=== PATIENT | female | born 1940 | race Two or more races ===

== ENCOUNTER → 2017-03-10 | Outpatient (CLI) | payer MEDICARE, OTHER ==
[2017-03-10 16:05] LABS: BUN/Creatinine Ratio 22.8; Calcium 8.8 mg/dL (8.5-10.1); Potassium 3.6 mmol/L (3.5-5.1); Uric Acid 3.4 mg/dL (2.6-6.0)
== END | disposition home or self-care (01) ==
LOC: LAB 14:18
PROVIDERS: ATTEND Internal Medicine Cardiovascular Disease
DX: I10 Essential (primary) hypertension (principal); M10.9 Gout, unspecified
CPT/HCPCS: 36415; 80048; 84550

== ENCOUNTER → 2017-10-20 | Outpatient (CLI) | payer MEDICARE, OTHER ==
[2017-10-20 15:13] LABS: Urine Bilirubin Negative (Negative); Urine Blood TRACE /uL (Negative); Urine Color Yellow (Yellow); Urine Glucose Normal (Normal); Urine Ketone Negative (Negative); Urine Nitrite Negative (Negative); Urine Urobilinogen Normal (Negative)
[2017-10-20 15:17] LABS: Basophils # (auto) 0.1 uL; Eosinophils # (auto) 0.2 uL; Eosinophils % (auto) 3.1 % (0.0-7.0); Hematocrit 37.7 % (36.0-46.0); Hemoglobin 12.5 g/dL (12.2-16.2); Lymphocytes # (auto) 1.6 uL; Lymphocytes % (auto) 30.2 % (10.0-50.0); Mean Corpuscular Hemoglobin 28.8 pg (28.0-32.0); Mean Corpuscular Hgb Conc. 33.1 g/dL (32.0-36.0); Mean Platelet Volume 8.4 fL (6.9-10.8); Monocytes # (auto) 0.4 uL; Monocytes % (auto) 7.6 % (0.0-12.0); Neutrophils % (auto) 58.1 % (37.0-80.0); Nucleated Red Blood Cells % 0.3 %; Platelet Count (auto) 284 10^3/uL (140-450); Red Cell Distribution Width 15.7 % (11.8-14.3); White Blood Cell 5.2 10^3/uL (4.4-10.8)
[2017-10-20 15:25] LABS: Albumin 3.5 g/dL (3.4-5.0); Alkaline Phosphatase 69 U/L (45-117); Anion Gap 12 (5-15); Aspartate Aminotransferase 15 U/L (15-37); BUN/Creatinine Ratio 33.3; Bilirubin, Direct < 0.1 mg/dL (0-0.2); Bilirubin, Total 0.3 mg/dL (0.2-1.0); Blood Urea Nitrogen 25 mg/dL (7-18); Calcium 9.2 mg/dL (8.5-10.1); Carbon Dioxide 25 mmol/L (21-32); Chloride 111 mmol/L (98-107); Cholesterol 122 mg/dL (< 200); GFR African American 97 mL/min; GFR Non-African American 80 mL/min; Glucose 97 mg/dL (74-106); HDL Cholesterol 56 mg/dL (40-59); LDL Cholesterol 66 mg/dL (< 100); Potassium 4.7 mmol/L (3.5-5.1); Sodium 148 mmol/L (136-145); Total Protein 7.4 g/dL (6.4-8.2); Triglycerides 109 mg/dL (< 150)
== END | disposition home or self-care (01) ==
LOC: LAB 09:42
PROVIDERS: ATTEND Internal Medicine Cardiovascular Disease
DX: I10 Essential (primary) hypertension (principal); E11.9 Type 2 diabetes mellitus without complications; E78.00 Pure hypercholesterolemia, unspecified; K74.1 Hepatic sclerosis; E03.9 Hypothyroidism, unspecified; D64.9 Anemia, unspecified; E55.9 Vitamin D deficiency, unspecified; N39.0 Urinary tract infection, site not specified
CPT/HCPCS: 36415; 80048; 80061; 80076; 81003; 82306; 83036; 84443; 85025

== ENCOUNTER → 2017-10-26 | Outpatient (CLI) | payer OTHER | END | disposition home or self-care (01) | LOC: Rad HDHVI 12:01 | PROVIDERS: ATTEND Internal Medicine Cardiovascular Disease | DX: I70.0 Atherosclerosis of aorta (principal); R91.8 Other nonspecific abnormal finding of lung field | CPT/HCPCS: 71020 ==

== ENCOUNTER → 2018-12-14 | Outpatient (CLI) | payer OTHER ==
[2018-12-14 12:11] LABS: Basophils # (auto) 0.1 uL; Eosinophils # (auto) 0.2 uL; Monocytes # (auto) 0.6 uL; Red Cell Distribution Width 17.5 % (11.8-14.3)
[2018-12-14 12:14] LABS: Basophils % (auto) 0.6 % (0.0-2.0); Eosinophils % (auto) 2.3 % (0.0-7.0); Hematocrit 33.8 % (36.0-46.0); Hemoglobin 11.1 g/dL (12.2-16.2); Lymphocytes # (auto) 1.2 uL; Lymphocytes % (auto) 13.8 % (10.0-50.0); Mean Corpuscular Hgb Conc. 32.7 g/dL (32.0-36.0); Mean Corpuscular Volume 73.3 fL (80.0-100.0); Monocytes % (auto) 6.8 % (0.0-12.0); Neutrophils # (auto) 6.4 uL; Neutrophils % (auto) 76.5 % (37.0-80.0); Nucleated Red Blood Cells % 0.4 %; Platelet Count (auto) 381 10^3/uL (140-450); Red Blood Cells 4.61 10^6/uL (4.0-5.20); White Blood Cell 8.4 10^3/uL (4.4-10.8)
[2018-12-14 12:19] LABS: Urine Blood Negative /uL (Negative); Urine Specific Gravity 1.006 (1.001-1.035)
[2018-12-14 12:21] LABS: Chloride 108 mmol/L (98-107); Potassium 3.9 mmol/L (3.5-5.1); Sodium 139 mmol/L (136-145)
[2018-12-14 12:28] LABS: Free T4 (Free Thyroxine) 1.07 ng/dL (0.89-1.76)
[2018-12-14 12:32] LABS: Alanine Aminotransferase 20 U/L (13-56); Albumin 3.4 g/dL (3.4-5.0); Alkaline Phosphatase 83 U/L (45-117); Anion Gap 5 (5-15); Aspartate Aminotransferase 24 U/L (15-37); BUN/Creatinine Ratio 22.7; Bilirubin, Total 0.2 mg/dL (0.2-1.0); Blood Urea Nitrogen 15 mg/dL (7-18); Calcium 8.7 mg/dL (8.5-10.1); Carbon Dioxide 26 mmol/L (21-32); Cholesterol 125 mg/dL (< 200); GFR African American > 60 mL/min; GFR Non-African American > 60 mL/min; Glucose 95 mg/dL (74-106); HDL Cholesterol 52 mg/dL (40-59); LDL Cholesterol 65 mg/dL (< 100); Total Protein 7.3 g/dL (6.4-8.2); Triglycerides 60 mg/dL (< 150)
== END | disposition home or self-care (01) ==
LOC: LAB 08:49
PROVIDERS: ATTEND Internal Medicine
DX: E03.9 Hypothyroidism, unspecified (principal); E11.9 Type 2 diabetes mellitus without complications; E55.9 Vitamin D deficiency, unspecified; D51.9 Vitamin B12 deficiency anemia, unspecified; N39.0 Urinary tract infection, site not specified
CPT/HCPCS: 36415; 80053; 80061; 81003; 82306; 82607; 83036; 84439; 84443; 85025; 87086

== ENCOUNTER → 2018-12-28 | Outpatient (CLI) | payer OTHER ==
[~2018-12-28] MED LIST: IOHEXOL 350 MG/ML 100ML IJ ONE
[2018-12-28 10:00] VITALS: BP 143/65
--- NOTE | 2018-12-28 10:15 | NUR ---
IV insertion IV access obtained, via clean sterile technique by inserting 22 gauge catheter at LAC after 1 attempt(s). IV secured properly. No trauma to site. Patient tolerated procedure well.
--- NOTE | 2018-12-28 10:40 | NUR ---
IV removal IV DC'd with sterile technique, catheter fully intact. Pressure dressing applied to site. Patient tolerated procedure well.
[2018-12-28 10:43] VITALS: BP 145/60
--- NOTE | 2018-12-28 10:43 | NUR ---
[facility] Discharge Instructions See e-MAR for any mediations given with this visit. Patient education given on disease process. Patient verbalized understanding. Previous labs reviewed. Patient discharged in stable condition with after care instructions and follow up appointment. NOTE PATIENT EDUCATED TO DRINK PLENTY OF FLUIDS AFTER CT SCAN, PATIENT VERBALIZED UNDERSTANDING.
== END | disposition home or self-care (01) ==
LOC: Rad HDHVI 09:51
PROVIDERS: ATTEND Internal Medicine
DX: J43.9 Emphysema, unspecified (principal); R91.8 Other nonspecific abnormal finding of lung field
CPT/HCPCS: 71260; 82565; G0463; Q9967

== ENCOUNTER → 2019-02-28 | Outpatient (CLI) | payer OTHER ==
[2019-02-28 12:14] LABS: Potassium 3.9 mmol/L (3.5-5.1)
[2019-02-28 12:22] LABS: BUN/Creatinine Ratio 46.4
== END | disposition home or self-care (01) ==
LOC: LAB 07:55
PROVIDERS: ATTEND Internal Medicine Cardiovascular Disease
DX: R94.4 Abnormal results of kidney function studies (principal); I10 Essential (primary) hypertension
CPT/HCPCS: 36415; 80048

== ENCOUNTER → 2019-03-01 | Outpatient (CLI) | payer OTHER ==
[~2019-03-01] MED LIST changes: +EZET10TA PO; +RALO60TA13 PO; +TELM80TA PO; +TIOTCAP IN
[2019-03-01 10:40] VITALS: BP 125/54
[2019-03-01 11:41] VITALS: BP 122/47
--- NOTE | 2019-03-01 11:41 | NUR ---
CTA BILATERAL LEGS DONE. TOLERATED WELL IV SITE BENIGN POST USE. Discharge Instructions See e-MAR for any mediations given with this visit. Patient education given on disease process. Patient verbalized understanding. Previous labs reviewed. Patient discharged in stable condition with after care instructions .
== END | disposition home or self-care (01) ==
LOC: Rad HDHVI 09:51
PROVIDERS: ATTEND Internal Medicine Cardiovascular Disease
DX: I70.0 Atherosclerosis of aorta (principal); C34.90 Malignant neoplasm of unspecified part of unspecified bronchus or lung; I07.1 Rheumatic tricuspid insufficiency; I73.9 Peripheral vascular disease, unspecified; I10 Essential (primary) hypertension; I77.1 Stricture of artery
CPT/HCPCS: 75635; 93306; G0463; Q9967

== ENCOUNTER 2019-03-05 10:22 | Inpatient (IN) | payer OTHER ==
[2019-03-05] VITALS (7 sets, daily range): BP systolic 96–132; BP diastolic 37–56
[~2019-03-05] VITALS: Ht 165.1 cm; Wt 52.3 kg
[2019-03-05] MEDS ORDERED: LEVOFLOXACIN 500MG 100 ML IV ONE (10:30)
[2019-03-05] MEDS ORDERED: SODIUM CHLORIDE 0.9% 500 ML IV ONE (10:34)
[2019-03-05] MEDS ORDERED: ONDANSETRON HCL 4 MG/2 ML VIAL IV ONE (10:45)
[2019-03-05 12:12] LABS: Basophils # (auto) 0 uL; Basophils % (auto) 0.6 % (0.0-2.0); Eosinophils # (auto) 0.1 uL; Eosinophils % (auto) 1.1 % (0.0-7.0); Lymphocytes # (auto) 1.1 uL; Lymphocytes % (auto) 13.4 % (10.0-50.0); Mean Corpuscular Hemoglobin 24.7 pg (28.0-32.0); Mean Corpuscular Hgb Conc. 31.9 g/dL (32.0-36.0); Mean Corpuscular Volume 77.5 fL (80.0-100.0); Monocytes # (auto) 0.3 uL; Monocytes % (auto) 3.6 % (0.0-12.0); Neutrophils # (auto) 6.6 uL; Neutrophils % (auto) 81.3 % (37.0-80.0); Platelet Count (auto) 194 10^3/uL (140-450); Red Blood Cells 1.68 10^6/uL (4.0-5.20); White Blood Cell 8.1 10^3/uL (4.4-10.8)
[2019-03-05 12:13] LABS: Nucleated Red Blood Cells % 8.6 %; Red Cell Distribution Width 24.4 % (11.8-14.3)
[2019-03-05 12:14] LABS: Hemoglobin 4.1 g/dL (12.2-16.2)
[2019-03-05 12:26] LABS: INR 1.29 (0.9-1.15); Partial Thromboplastin Time 25.7 sec (23.78-33.04); Prothrombin Time 13.6 sec (9.27-12.13)
[2019-03-05 12:29] LABS: Calcium 7.2 mg/dL (8.5-10.1); Potassium 3.6 mmol/L (3.5-5.1)
[2019-03-05] MEDS ORDERED: diphenhdrAMINE HCL 25 MG CAP PO ONE (12:30)
[2019-03-05 12:35] LABS: Bilirubin, Total 0.3 mg/dL (0.2-1.0); Total Protein 4.2 g/dL (6.4-8.2)
[2019-03-05] MEDS ORDERED: CALCIUM CHL 100MG/ML 500 MG in D5W 5% 100 ML IV ONE (12:45)
[2019-03-05] MEDS ORDERED: ACETAMINOPHEN 325 MG TAB PO ONE (13:00)
[2019-03-05] MEDS ORDERED: NITROGLYCERIN 0.4 MG SL TAB SL PRN (13:30)
[2019-03-05] MEDS ORDERED: ACETAMINOPHEN 500 MG TAB PO PRN (13:30)
[2019-03-05] MEDS ORDERED: MORPHINE SULF INJ 2 MG/ML SYRINGE 1ML IV PRN (13:30)
[2019-03-05] MEDS ORDERED: PANTOPRAZOLE 40 MG TAB PO ONE (13:30)
[2019-03-05] MEDS ORDERED: MULTIPLE VITAMIN 10 ML, MAGNESIUM SULF SDV 50% 8 MEQ, THIAMINE INJ 100 MG in D5W/SOD CH... IV SCH (13:45)
[2019-03-05] MEDS: SODIUM CHLORIDE 0.9% 1,000 ML IV SCH (19:39)
[2019-03-05 22:07] LABS: Basophils # (auto) 0 uL; Basophils % (auto) 0.3 % (0.0-2.0); Eosinophils # (auto) 0.1 uL; Eosinophils % (auto) 0.9 % (0.0-7.0); Hematocrit 26.3 % (36.0-46.0); Hemoglobin 8.8 g/dL (12.2-16.2); Lymphocytes # (auto) 1.1 uL; Lymphocytes % (auto) 14.9 % (10.0-50.0); Mean Corpuscular Hemoglobin 28.2 pg (28.0-32.0); Mean Corpuscular Hgb Conc. 33.3 g/dL (32.0-36.0); Mean Corpuscular Volume 84.6 fL (80.0-100.0); Monocytes # (auto) 0.3 uL; Monocytes % (auto) 4.4 % (0.0-12.0); Neutrophils # (auto) 5.8 uL; Neutrophils % (auto) 79.5 % (37.0-80.0); Nucleated Red Blood Cells % 0.1 %; Platelet Count (auto) 158 10^3/uL (140-450); Red Blood Cells 3.11 10^6/uL (4.0-5.20); White Blood Cell 7.3 10^3/uL (4.4-10.8)
[2019-03-05 22:12] LABS: Red Cell Distribution Width 21.6 % (11.8-14.3)
[2019-03-05] MEDS: HYDROcodone-ACET 5/325MG TAB PO PRN (22:23)
[2019-03-05] MEDS: PANTOPRAZOLE 40 MG TAB PO SCH (22:24)
[2019-03-06] VITALS: BP 124/58
[2019-03-06 03:00] VITALS: BP 124/57
[2019-03-06 06:01] LABS: Basophils # (auto) 0 uL; Basophils % (auto) 0.2 % (0.0-2.0); Eosinophils # (auto) 0.1 uL; Eosinophils % (auto) 1.1 % (0.0-7.0); Hematocrit 25.3 % (36.0-46.0); Hemoglobin 8.6 g/dL (12.2-16.2); Lymphocytes # (auto) 0.9 uL; Lymphocytes % (auto) 13.1 % (10.0-50.0); Mean Corpuscular Hemoglobin 28.3 pg (28.0-32.0); Mean Corpuscular Volume 83.4 fL (80.0-100.0); Monocytes # (auto) 0.4 uL; Monocytes % (auto) 5.2 % (0.0-12.0); Neutrophils # (auto) 5.6 uL; Neutrophils % (auto) 80.4 % (37.0-80.0); Nucleated Red Blood Cells % 0.1 %; Platelet Count (auto) 154 10^3/uL (140-450); Red Blood Cells 3.03 10^6/uL (4.0-5.20); White Blood Cell 6.9 10^3/uL (4.4-10.8)
[2019-03-06 06:17] LABS: Potassium 3.3 mmol/L (3.5-5.1)
[2019-03-06 06:20] LABS: Red Cell Distribution Width 21.7 % (11.8-14.3)
[2019-03-06 06:25] LABS: BUN/Creatinine Ratio 26.3
[2019-03-06 08:00] VITALS: BP 121/59
[2019-03-06] MEDS: HYDROcodone-ACET 5/325MG TAB PO PRN (09:34)
[2019-03-06] MEDS: PANTOPRAZOLE 40 MG TAB PO SCH ×2 (09:34→22:14)
[2019-03-06] MEDS: SODIUM CHLORIDE 0.9% 1,000 ML IV SCH ×3 (09:35→20:18)
[2019-03-06] MEDS ORDERED: TELM80TA PO (11:38)
[2019-03-06] MEDS ORDERED: RALO60TA13 PO (11:38)
[2019-03-06] MEDS ORDERED: EZET10TA PO (11:41)
[2019-03-06] MEDS ORDERED: TIOTCAP IN (11:41)
[2019-03-06] MEDS ORDERED: POTASSIUM CHL 20 Meq TABLET PO ONE (11:45)
[2019-03-06 11:50] VITALS: BP 120/59
[2019-03-06 15:46] VITALS: BP 132/67
[2019-03-06 19:45] VITALS: BP 125/56
[2019-03-06] MEDS: MORPHINE SULF INJ 2 MG/ML SYRINGE 1ML IV PRN (23:10)
[2019-03-07] VITALS: BP 134/64
[2019-03-07 04:00] VITALS: BP 119/48
[2019-03-07] MEDS: SODIUM CHLORIDE 0.9% 1,000 ML IV SCH ×2 (05:30→15:38)
[2019-03-07] MEDS: HYDROcodone-ACET 5/325MG TAB PO PRN ×2 (07:39→15:38)
[2019-03-07 08:00] VITALS: BP 122/61
[2019-03-07] MEDS ORDERED: NALOXONE HCL 0.4 MG/ML VIAL ONE (08:44)
[2019-03-07] MEDS ORDERED: FLUMAZENIL 0.1 MG/ML INJ 10ML MDV IV ONE (08:44)
[2019-03-07] MEDS ORDERED: SODIUM CHLORIDE LOCK 10 ML ONE (08:44)
[2019-03-07] MEDS ORDERED: diphenhdrAMINE HCL 50 MG/1 ML VL ONE (08:45)
[2019-03-07] MEDS ORDERED: fentaNYL CITRATE 100 MCG/2 ML VL ONE (08:45)
[2019-03-07] MEDS ORDERED: LIDOCAINE VISCOUS 2% 15ML UD ONE (08:45)
[2019-03-07] MEDS ORDERED: MIDAZOLAM HCL 5 MG/ML-1ML VIAL ONE (08:45)
[2019-03-07] MEDS: PANTOPRAZOLE 40 MG TAB PO SCH ×2 (10:13→21:15)
[2019-03-07 12:00] VITALS: BP 112/57
[2019-03-07 16:00] VITALS: BP 126/59
[2019-03-07] MEDS: MORPHINE SULF INJ 2 MG/ML SYRINGE 1ML IV PRN ×2 (17:20→21:15)
[2019-03-07 19:59] VITALS: BP 115/57
[2019-03-08] VITALS: BP 142/64
[2019-03-08] MEDS: SODIUM CHLORIDE 0.9% 1,000 ML IV SCH ×3 (00:07→23:51)
[2019-03-08 04:00] VITALS: BP 131/68
[2019-03-08] MEDS: MORPHINE SULF INJ 2 MG/ML SYRINGE 1ML IV PRN ×4 (04:48→22:30)
[2019-03-08 08:00] VITALS: BP_SYST 116; BP_SYST 145; BP_DIAS 75; BP_DIAS 83
[2019-03-08] MEDS: PANTOPRAZOLE 40 MG TAB PO SCH ×2 (10:12→22:29)
[2019-03-08 12:00] VITALS: BP 145/75
[2019-03-08] MEDS: HYDROcodone-ACET 5/325MG TAB PO PRN ×4 (12:15→20:06)
[2019-03-08 12:56] LABS: Basophils # (auto) 0 uL; Mean Corpuscular Hemoglobin 27.6 pg (28.0-32.0); Nucleated Red Blood Cells % 0.1 %
[2019-03-08 12:57] LABS: Eosinophils # (auto) 0.1 uL; Eosinophils % (auto) 3.5 % (0.0-7.0); Hematocrit 25.8 % (36.0-46.0); Hemoglobin 8.3 g/dL (12.2-16.2); Lymphocytes # (auto) 0.6 uL; Mean Corpuscular Hgb Conc. 32.3 g/dL (32.0-36.0); Mean Corpuscular Volume 85.5 fL (80.0-100.0); Monocytes # (auto) 0.3 uL; Monocytes % (auto) 6.2 % (0.0-12.0); Neutrophils # (auto) 3.1 uL; Neutrophils % (auto) 74.3 % (37.0-80.0); Platelet Count (auto) 109 10^3/uL (140-450); Red Blood Cells 3.01 10^6/uL (4.0-5.20); White Blood Cell 4.2 10^3/uL (4.4-10.8)
[2019-03-08 13:00] LABS: Red Cell Distribution Width 22.1 % (11.8-14.3)
[2019-03-08 15:50] VITALS: BP 133/65
[2019-03-08 20:00] VITALS: BP 154/85
[2019-03-09] VITALS: BP 131/53
[2019-03-09 05:01] LABS: Basophils # (auto) 0 uL; Eosinophils # (auto) 0.2 uL; Eosinophils % (auto) 4.9 % (0.0-7.0); Hematocrit 25.3 % (36.0-46.0); Hemoglobin 8.4 g/dL (12.2-16.2); Monocytes # (auto) 0.2 uL; Neutrophils # (auto) 2.1 uL; Nucleated Red Blood Cells % 0.1 %
[2019-03-09 05:04] LABS: Basophils % (auto) 0.8 % (0.0-2.0); Lymphocytes # (auto) 0.7 uL; Mean Corpuscular Hemoglobin 28.1 pg (28.0-32.0); Mean Corpuscular Hgb Conc. 33.4 g/dL (32.0-36.0); Mean Corpuscular Volume 84.2 fL (80.0-100.0); Monocytes % (auto) 5.9 % (0.0-12.0); Neutrophils % (auto) 65.4 % (37.0-80.0); Platelet Count (auto) 115 10^3/uL (140-450); White Blood Cell 3.2 10^3/uL (4.4-10.8)
[2019-03-09 05:18] LABS: Red Cell Distribution Width 21.3 % (11.8-14.3)
[2019-03-09 05:23] LABS: BUN/Creatinine Ratio 13.2; Calcium 7.2 mg/dL (8.5-10.1); Potassium 3.5 mmol/L (3.5-5.1)
[2019-03-09 05:25] LABS: Bilirubin, Total 0.3 mg/dL (0.2-1.0); Total Protein 4.7 g/dL (6.4-8.2)
[2019-03-09] MEDS: MORPHINE SULF INJ 2 MG/ML SYRINGE 1ML IV PRN ×3 (05:36→20:10)
[2019-03-09 09:00] VITALS: BP 133/67
[2019-03-09] MEDS: PANTOPRAZOLE 40 MG TAB PO SCH ×2 (11:20→21:34)
[2019-03-09 13:00] VITALS: BP 149/64
[2019-03-09] MEDS: HYDROcodone-ACET 5/325MG TAB PO PRN (13:29)
[2019-03-09 16:31] VITALS: BP 142/84
[2019-03-09] MEDS: SODIUM CHLORIDE 0.9% 1,000 ML IV SCH ×2 (17:30→18:31)
[2019-03-09] MEDS: Pro-Stat SF 30ml Vanilla PO SCH (18:00)
[2019-03-09] MEDS: Ensure Enlive Vanilla 8oz Bottle PO SCH (18:00)
[2019-03-09] MEDS: ONDANSETRON HCL 4 MG/2 ML VIAL IV PRN (20:10)
[2019-03-09 21:53] VITALS: BP 123/52
[2019-03-10] MEDS: DOCUSATE SOD 100 MG CAP PO PRN ×2 (01:00→13:55)
[2019-03-10] MEDS: MORPHINE SULF INJ 2 MG/ML SYRINGE 1ML IV PRN ×6 (01:30→23:05)
[2019-03-10] MEDS: ONDANSETRON HCL 4 MG/2 ML VIAL IV PRN ×2 (02:02→06:57)
[2019-03-10 04:39] VITALS: BP 108/51
[2019-03-10] MEDS: SODIUM CHLORIDE 0.9% 1,000 ML IV SCH ×2 (04:53→13:30)
[2019-03-10 08:00] VITALS: BP 127/66
[2019-03-10] MEDS: Pro-Stat SF 30ml Vanilla PO SCH ×2 (08:00→18:00)
[2019-03-10] MEDS: Ensure Enlive Vanilla 8oz Bottle PO SCH ×3 (08:00→18:21)
[2019-03-10] MEDS: PANTOPRAZOLE 40 MG TAB PO SCH ×2 (09:38→23:04)
[2019-03-10 12:00] VITALS: BP_SYST 112; BP_SYST 116; BP_DIAS 51; BP_DIAS 56
[2019-03-10 22:29] VITALS: BP 107/52
[2019-03-11] MEDS: SODIUM CHLORIDE 0.9% 1,000 ML IV SCH ×3 (03:43→22:25)
[2019-03-11] MEDS: MORPHINE SULF INJ 2 MG/ML SYRINGE 1ML IV PRN ×4 (03:43→22:25)
[2019-03-11 05:08] VITALS: BP 127/62
[2019-03-11 06:05] LABS: Urine Bacteria FEW /hpf (None Seen); Urine Blood Negative /uL (Negative); Urine Specific Gravity 1.007 (1.001-1.035); Urine WBC 1 /hpf (0 - 5)
[2019-03-11 06:39] LABS: INR 0.88 (0.9-1.15); Partial Thromboplastin Time 24.2 sec (23.78-33.04); Prothrombin Time 9.5 sec (9.27-12.13)
[2019-03-11] MEDS: Ensure Enlive Vanilla 8oz Bottle PO SCH ×3 (08:00→18:37)
[2019-03-11] MEDS: Pro-Stat SF 30ml Vanilla PO SCH ×2 (08:00→18:37)
[2019-03-11 09:00] VITALS: BP 114/57
[2019-03-11] MEDS: PANTOPRAZOLE 40 MG TAB PO SCH ×2 (09:33→22:19)
[2019-03-11] MEDS: HYDROcodone-ACET 5/325MG TAB PO PRN (11:29)
[2019-03-11 13:21] VITALS: BP 115/53
[2019-03-11] MEDS ORDERED: IOHEXOL 350 MG/ML 100ML IJ ONE (14:21)
[2019-03-11] MEDS ORDERED: LIDOCAINE 2%HCL (LOCAL ANESTH.) INJ 20ML MDV ONE (14:21)
[2019-03-11] MEDS ORDERED: IODIXANOL 320MG/ML 100ML BTL IV ONE (14:33)
[2019-03-11] MEDS ORDERED: ANGIOMAX 250 MG VIAL IV ONE (14:38)
[2019-03-11] MEDS ORDERED: SODIUM CHL 0.9% 0 ML ONE (14:39)
[2019-03-11] MEDS ORDERED: fentaNYL CITRATE 100 MCG/2 ML VL ONE (14:39)
[2019-03-11] MEDS ORDERED: MIDAZOLAM HCL 1MG/1ML-2 ML VIAL ONE (14:39)
[2019-03-11 16:56] VITALS: BP 139/66
[2019-03-11 20:00] VITALS: BP 128/59
[2019-03-11 22:00] VITALS: BP 128/59
[2019-03-12] MEDS: HYDROcodone-ACET 5/325MG TAB PO PRN ×2 (01:24→16:05)
[2019-03-12 05:00] VITALS: BP 126/60
[2019-03-12] MEDS: MORPHINE SULF INJ 2 MG/ML SYRINGE 1ML IV PRN ×5 (05:15→21:49)
[2019-03-12] MEDS: SODIUM CHLORIDE 0.9% 1,000 ML IV SCH ×2 (05:30→18:55)
[2019-03-12] MEDS: Pro-Stat SF 30ml Vanilla PO SCH ×2 (08:00→18:50)
[2019-03-12] MEDS: Ensure Enlive Vanilla 8oz Bottle PO SCH ×3 (08:00→18:50)
[2019-03-12 09:00] VITALS: BP 120/62
[2019-03-12] MEDS: PANTOPRAZOLE 40 MG TAB PO SCH ×2 (09:22→21:48)
[2019-03-12 12:30] VITALS: BP 122/55
[2019-03-12 17:45] VITALS: BP 123/76
[2019-03-12] MEDS: CILOSTAZOL 100 MG TAB PO SCH (21:48)
[2019-03-12 23:24] VITALS: BP 126/59
[2019-03-13] MEDS: SODIUM CHLORIDE 0.9% 1,000 ML IV SCH ×3 (00:39→21:57)
[2019-03-13 05:35] VITALS: BP 107/49
[2019-03-13] MEDS: HYDROcodone-ACET 5/325MG TAB PO PRN ×2 (06:16→23:41)
[2019-03-13 08:00] VITALS: BP 115/61
[2019-03-13 09:00] VITALS: BP 109/55
[2019-03-13] MEDS: Ensure Enlive Vanilla 8oz Bottle PO SCH ×3 (09:23→17:28)
[2019-03-13] MEDS: Pro-Stat SF 30ml Vanilla PO SCH ×2 (10:18→17:28)
[2019-03-13] MEDS: CILOSTAZOL 100 MG TAB PO SCH ×2 (10:18→21:54)
[2019-03-13] MEDS: PANTOPRAZOLE 40 MG TAB PO SCH ×2 (10:18→21:54)
[2019-03-13] MEDS: DOCUSATE SOD 100 MG CAP PO PRN (10:48)
[2019-03-13 13:00] VITALS: BP 120/62
[2019-03-13] MEDS: GABAPENTIN 300 MG CAP PO SCH ×2 (14:27→21:54)
[2019-03-13] MEDS ORDERED: MAGNESIUM CITRATE SOLUTION 300 ML BTL PO ONE (14:45)
[2019-03-13 17:02] VITALS: BP 115/60
[2019-03-13 18:47] LABS: Basophils # (auto) 0 uL; Basophils % (auto) 0.9 % (0.0-2.0); Eosinophils # (auto) 0.1 uL; Eosinophils % (auto) 1.6 % (0.0-7.0); Hematocrit 26.6 % (36.0-46.0); Hemoglobin 8.6 g/dL (12.2-16.2); Lymphocytes # (auto) 0.5 uL; Lymphocytes % (auto) 14.5 % (10.0-50.0); Mean Corpuscular Hemoglobin 27.2 pg (28.0-32.0); Mean Corpuscular Hgb Conc. 32.1 g/dL (32.0-36.0); Mean Corpuscular Volume 84.8 fL (80.0-100.0); Monocytes # (auto) 0.3 uL; Monocytes % (auto) 7.5 % (0.0-12.0); Neutrophils # (auto) 2.7 uL; Neutrophils % (auto) 75.5 % (37.0-80.0); Nucleated Red Blood Cells % 0.1 %; Platelet Count (auto) 190 10^3/uL (140-450); Red Blood Cells 3.14 10^6/uL (4.0-5.20); White Blood Cell 3.6 10^3/uL (4.4-10.8)
[2019-03-13 18:51] LABS: Red Cell Distribution Width 20.8 % (11.8-14.3)
[2019-03-13 18:54] LABS: Albumin 2.5 g/dL (3.4-5.0); BUN/Creatinine Ratio 29.4; Calcium 8.1 mg/dL (8.5-10.1); Potassium 3.8 mmol/L (3.5-5.1)
[2019-03-13 18:56] LABS: Bilirubin, Total 0.2 mg/dL (0.2-1.0); Total Protein 5.9 g/dL (6.4-8.2)
[2019-03-13 22:00] VITALS: BP 113/52
[2019-03-14 05:00] VITALS: BP 120/67
[2019-03-14] MEDS: GABAPENTIN 300 MG CAP PO SCH ×2 (06:09→14:02)
[2019-03-14] MEDS: SODIUM CHLORIDE 0.9% 1,000 ML IV SCH (07:31)
[2019-03-14 09:00] VITALS: BP 116/60
[2019-03-14] MEDS: CILOSTAZOL 100 MG TAB PO SCH (09:17)
[2019-03-14] MEDS: Pro-Stat SF 30ml Vanilla PO SCH ×2 (09:17→17:09)
[2019-03-14] MEDS: Ensure Enlive Vanilla 8oz Bottle PO SCH ×2 (09:17→13:06)
[2019-03-14] MEDS: PANTOPRAZOLE 40 MG TAB PO SCH (09:17)
[2019-03-14] MEDS: HYDROcodone-ACET 5/325MG TAB PO PRN ×2 (09:18→14:28)
[2019-03-14] MEDS: MORPHINE SULF INJ 2 MG/ML SYRINGE 1ML IV PRN ×2 (10:34→18:35)
[2019-03-14 13:00] VITALS: BP 124/55
[2019-03-14 17:14] VITALS: BP 117/49
== END 2019-03-14 19:35 | disposition home or self-care (01) | DRG 377 ==
LOC: EDBD 10:22 → ER 10:26 → TELE 13:25 → DOU IN ICU 20:25 → TELE-CENTR 03-09 06:14
PROVIDERS: ADMIT Nurse Practitioner Acute Care; ATTEND Internal Medicine Cardiovascular Disease
PROC: 30233N1 Transfusion of Nonautologous Red Blood Cells into Peripheral Vein, Percutaneous Approach (ICD-10-PCS; 2019-03-05)
PROC: 0W3P8ZZ Control Bleeding in Gastrointestinal Tract, Via Natural or Artificial Opening Endoscopic (ICD-10-PCS; principal; 2019-03-07 09:07)
PROC: B41G1ZZ Fluoroscopy of Left Lower Extremity Arteries using Low Osmolar Contrast (ICD-10-PCS; 2019-03-11)
PROC: B41F1ZZ Fluoroscopy of Right Lower Extremity Arteries using Low Osmolar Contrast (ICD-10-PCS; 2019-03-11)
DX: K31.811 Angiodysplasia of stomach and duodenum with bleeding (principal); E43 Unspecified severe protein-calorie malnutrition; C79.31 Secondary malignant neoplasm of brain; C78.7 Secondary malignant neoplasm of liver and intrahepatic bile duct; C79.00 Secondary malignant neoplasm of unspecified kidney and renal pelvis; C34.90 Malignant neoplasm of unspecified part of unspecified bronchus or lung; D68.59 Other primary thrombophilia; K29.71 Gastritis, unspecified, with bleeding; J43.9 Emphysema, unspecified; E27.9 Disorder of adrenal gland, unspecified; I73.9 Peripheral vascular disease, unspecified; D64.9 Anemia, unspecified; E83.51 Hypocalcemia; I95.9 Hypotension, unspecified; I10 Essential (primary) hypertension; K27.9 Peptic ulcer, site unspecified, unspecified as acute or chronic, without hemorrhage or perforation; K59.00 Constipation, unspecified; Z85.3 Personal history of malignant neoplasm of breast; Z90.710 Acquired absence of both cervix and uterus; Z92.3 Personal history of irradiation; Z90.49 Acquired absence of other specified parts of digestive tract; Z85.118 Personal history of other malignant neoplasm of bronchus and lung
CPT/HCPCS: 36415; 36430; 70450; 71045; 71250; 80048; 80053; 81001; 82140; 82270; 83605; 83880; 84484; 85025; 85610; 85730; 86850; 86900; 86901; 86920; 87040; 87081; 94761; 96361; 96365; 96367; A6257; C1769; G0378; J1956; J2250; J2405; J7060; Q9967